=== PATIENT | male | born 1985 ===

== ENCOUNTER 2017-12-16 15:11 | Emergency (ER) | payer SELFPAY ==
[2017-12-16 15:18] VITALS: BP 137/83; PULSE 77; RESP 20; TEMP 97.6; O2SAT 100
--- NOTE | 2017-12-16 16:40 | ED PDOC ---
HPI: Influenza Time Seen by Provider: 12/16/17 16:02 Chief Complaint: Cough, Cold, Congestion History Per: Patient Additional complaint(s):: Pt. states for the past week he's had nasal congestion, sore throat, and R earache. States he was seen in [facility] and prescribed Sudafed and Tylenol/ Motrin but he did not take it. States he was concerned that no blood test or imaging tests were done. Denies fever, SOB, chest pain, hemoptysis, rash, head injury, sick contacts, recent travel, weakness, numbness, tingling. Past Medical History Reviewed: Historical Data, Nursing Documentation, Vital Signs Vital Signs: Last Vital Signs Temp 97.6 F 12/16/17 15:14 Pulse 77 12/16/17 15:14 Resp 20 12/16/17 15:14 BP 137/83 12/16/17 15:14 Pulse Ox 100 12/16/17 15:14 - Surgical History Surgical History: No Surg Hx - Family History Family History: States: No Known Family Hx - Home Medications Home Medications: Ambulatory Orders Medication Instructions Recorded Acetaminophen [Tylenol Extra 2 tab PO Q6 #30 tablet 12/16/17 Strength] Amoxicillin/Clavulanate [Augmentin 1 tab PO BID #20 tab 12/16/17 875 MG-125 MG] Fluticasone Propionate [Flonase] 2 spr NS DAILY PRN #1 bottle 12/16/17 Loratadine [Claritin] 10 mg PO DAILY #30 tab 12/16/17 Pseudoephedrine HCl [Sudafed 24 240 mg PO DAILY PRN #1 unit 12/16/17 Hour] - Allergies Allergies/Adverse Reactions: Allergies Allergy/AdvReac Type Severity Reaction Status Date / Time No Known Allergies Allergy Verified 12/16/17 15:14 Review of Systems ROS Statement: Except As Marked, All Systems Reviewed And Found Negative ENT: Positive for: Ear Pain, Nose Congestion, Throat Pain Physical Exam - Physical Exam Appears: Positive for: Well, Non-toxic, No Acute Distress Head Exam: Positive for: ATRAUMATIC, NORMAL INSPECTION, NORMOCEPHALIC Skin: Positive for: Normal Color, Warm. Negative for: Rash Eye Exam: Positive for: EOMI, Normal appearance, PERRL ENT: Positive for: Normal ENT Inspection, TM Is/Are (non-erythematous, non- bulging b/l) Neck: Positive for: Normal, Painless ROM Cardiovascular/Chest: Positive for: Regular Rate, Rhythm Respiratory: Positive for: Normal Breath Sounds. Negative for: Respiratory Distress Neurologic/Psych: Positive for: Alert, Oriented. Negative for: Aphasia, Facial Droop Medical Decision Making Medical Decision Making: Pt. advised to take all newly prescribed meds along with meds previously prescribed from [facility] ED. Agrees with plan and care. - ECG O2 Sat by Pulse Oximetry: 100 Disposition - Clinical Impression Clinical Impression: Acute sinusitis - Patient ED Disposition Is Patient to be Admitted: No - Disposition Referrals: [facility] [Outside] [facility] [Outside] Disposition: Routine/Home Disposition Time: 16:39 Condition: STABLE Additional Instructions: PETE MAYNARD, thank you for letting us take care of you today. Your provider was Yolande Duong MD and you were treated for SOB/ HEADACHE. The emergency medical care you received today was directed at your acute symptoms. If you were prescribed any medication, please fill it and take as directed. It may take several days for your symptoms to resolve. Return to the Emergency Department if your symptoms worsen, do not improve, or if you have any other problems. Please contact your doctor or call one of the physicians/clinics you have been referred to that are listed on the Patient Visit Information form that is included in your discharge packet. Bring any paperwork you were given at discharge with you along with any medications you are taking to your follow up visit. Our treatment cannot replace ongoing medical care by a primary care provider outside of the emergency department. Thank you for allowing the [facility] team to be part of your care today. If you had an X-Ray or CT scan: A Radiologist will review the ED reading if any change in treatment is needed we will contact you. If you had a blood, urine, or wound culture: It will take several days for the results, if any change in treatment is needed we will contact you. If you had an STI test: It will take 48 hours for the results. Please call after 1 week if you have not heard back. Prescriptions: Amoxicillin/Clavulanate [Augmentin 875 MG-125 MG] 1 tab PO BID #20 tab Fluticasone Propionate [Flonase] 2 spr NS DAILY PRN #1 bottle PRN Reason: Allergy Symptoms Instructions: Sinusitis, Adult (DC) Forms: [facility] (Ecuadorean) Print Language: LIBERIAN
== END 2017-12-16 17:08 | disposition home or self-care (01) ==
LOC: H.ER 15:11
DX: J01.90 Acute sinusitis, unspecified (principal); H92.09 Otalgia, unspecified ear